=== PATIENT | female | born 1935 | race Caucasian/White ===

== ENCOUNTER 2019-06-18 01:36 | Emergency (ER) | payer MEDICARE ==
[~2019-06-18] VITALS: Ht 167.6 cm; Wt 68.0 kg
--- NOTE | 2019-06-18 01:36 | NUR ---
PT BIB EMS C/O L ANKLE OPEN FRACTURE S/P TRIP & FALL AT HOME. PT REPORTS HITTING BACK OF HEAD. L HAND HEMATOMA NOTED. PT DENIES KO. PT AOX3. NAD NOTED. RESP EVEN AND UNLABORED. PT ON MONITOR IN BED 5. WILL CONTINUE TO MONITOR.
--- NOTE | 2019-06-18 01:50 | NUR ---
R FOREARM 18G INITIATED. PT TOLERATED WELL. BLOOD DRAWN AND GIVEN TO PHLEB.
[2019-06-18 01:53] LABS: BASOPHILS # (AUTO) 0.1 /CMM (0.0-0.2); BASOPHILS % (AUTO) 1.1 % (0.0-2.0); EOSINOPHILS % (AUTO) 5.2 % (0.0-6.0); HEMATOCRIT 33 % (33-45); LYMPHOCYTES # (AUTO) 2.2 /CMM (0.8-4.8); LYMPHOCYTES % (AUTO) 36.8 % (20.0-44.0); MEAN CORPUSCULAR HGB CONC 33 g/dl (31.0-36.0); MEAN CORPUSCULAR VOLUME 98 fL (82-100); MONOCYTES # (AUTO) 0.9 /CMM (0.1-1.30); MONOCYTES % (AUTO) 15.1 % (2.0-12.0); NEUTROPHILS # (AUTO) 2.5 /CMM (1.8-8.9); NEUTROPHILS % (AUTO) 41.8 % (43.0-81.0); PLATELET COUNT (AUTO) 130 /CMM (150-450); RED BLOOD CELL COUNT(AUTO) 3.41 MIL/uL (4.0-5.2)
--- NOTE | 2019-06-18 01:54 | NUR ---
RADIOLOGY AT BEDSIDE FOR XRAY
[2019-06-18] MEDS ORDERED: VANCOMYCIN 1 GM in IV D5W 250 ML IV ONE (02:00)
[2019-06-18] MEDS ORDERED: MORPHINE SULFATE INJ 2 MG/ML DISP.SYRIN IV ONE (02:00)
[2019-06-18] MEDS ORDERED: ONDANSETRON HCL/PF 4 MG/2 ML VIAL IV ONE (02:00)
[2019-06-18] MEDS ORDERED: ONDANSETRON HCL/PF 4 MG/2 ML VIAL ONE (02:10)
[2019-06-18] MEDS ORDERED: MORPHINE SULFATE INJ 4 MG/ML DISP.SYRIN ONE (02:10)
[2019-06-18] MEDS ORDERED: VANCOMYCIN 1 GM VIAL ONE (02:10)
[2019-06-18 02:14] LABS: CALCIUM, SERUM 9.4 mg/dL (8.5-10.1); CARBON DIOXIDE 23 mmol/L (21-32); CHLORIDE 102 mmol/L (98-107); CREATININE 1.6 mg/dL (0.6-1.3); GLUCOSE 139 mg/dL (74-106); POTASSIUM 3.5 mmol/L (3.5-5.1); SODIUM SERUM 138 mmol/L (136-145); UREA NITROGEN, BLOOD 38 mg/dL (7-18)
[2019-06-18 02:29] LABS: BAND % (MANUAL) 4 % (0.0-5.0); EOSINOPHILS % (MANUAL) 3 % (0-4); LYMPHOCYTES % (MANUAL) 36 % (16-48); MONOCYTES % (MANUAL) 6 % (0-11.0); NEUTROPHILS % (MANUAL) 51 (42-76)
[2019-06-18] MEDS ORDERED: PROPOFOL 20 ML IV ONE (02:30)
[2019-06-18] MEDS ORDERED: LIDOCAINE 1% INJ 50 ML MDV IJ ONE (02:32)
[2019-06-18] MEDS ORDERED: BUPIVACAINE 0.5 % PF 150 MG/30 ML VIAL ONE (02:32)
--- NOTE | 2019-06-18 02:44 | NUR ---
REFER TO MODERATE SEDATION ASSESSMENT
--- NOTE | 2019-06-18 03:03 | NUR ---
RADIOLOGY AT BEDSIDE FOR XRAY
[2019-06-18 04:46] VITALS: BP 134/74
[2019-06-18] MEDS ORDERED: TDAP [DIPH/PERTUSSIS/TET] 0.5 ML VIAL IM ONE ×2 (04:48→05:00)
--- NOTE | 2019-06-18 04:48 | NUR ---
TRANSPORT AT BEDSIDE REPORT GIVEN TO EMT.
--- NOTE | 2019-06-18 04:55 | NUR ---
REPORT GIVEN TO AGNES SUAZO.
[2019-06-18] MEDS ORDERED: IV NS 0.9% 1,000 ML BAG IV ONE (05:00)
[2019-06-18] MEDS ORDERED: PROPOFOL 200 MG/20 ML VIAL IV ONE (05:00)
== END 2019-06-18 06:32 | disposition short-term general hospital (02) ==
LOC: ER 01:38
DX: S82.892A Other fracture of left lower leg, initial encounter for closed fracture (principal); S60.222A Contusion of left hand, initial encounter; S50.312A Abrasion of left elbow, initial encounter; S09.8XXA Other specified injuries of head, initial encounter; I10 Essential (primary) hypertension; W01.0XXA Fall on same level from slipping, tripping and stumbling without subsequent striking against object, initial encounter; Y93.89 Activity, other specified; Y92.89 Other specified places as the place of occurrence of the external cause; Y99.8 Other external cause status
CPT/HCPCS: 27825; 36415; 70450; 71045; 73130; 73610 ×2; 80048; 85025; 85730; 87081; 90471; 90715; 93005; 96365; 96375; 99152; 99291; J2270; J2405; J2704; J3370; J3490 ×2; J7030; J7040; G0500